=== PATIENT | male | born 1995 | race Caucasian/White ===

== ENCOUNTER 2020-08-24 01:08 | Emergency (ER) | payer MEDICAID ==
[~2020-08-24] VITALS: Ht 167.6 cm; Wt 80.7 kg
--- NOTE | 2020-08-24 01:24 | Emergency Room Report ---
History of Present Illness General Chief Complaint: Head Injury Source: Patient Present Illness HPI 25-year-old male with no prior medical history presents to ED status post syncopal fall that occurred prior to arrival. Pt states he felt hot and flushed and then "passed out", hitting the back of his head on the floor. Fall was unwitnessed. His girlfriend found him unconscious for 1 min with rapid return back to baseline. Patient states he has been having diarrhea x 1 day, non bloody. Also endorses vomiting after syncope. States the back of his head hurts where his head hit the ground. Patient states he recently returned from [place] travel out of [place]. 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 Denies household sick contacts. Denies seizure or sz history, bowel/bladder incontinence, urinary retention, vision changes, weakness, neck pain, back pain, chest pain, melena, hematochez ia, dysuria, hematuria, cough, phlegm, fever, chills, or other symptoms. The patient's symptoms were gradual onset, severity was moderate, duration since 1-2 days. Quality: generally weak Past medical history: Denies Past surgical history: Denies Smoking: ++ tobacco Alcohol use: ++occasional alcohol Drug use: ++marijuana Review of systems: CONST: No fevers or chills, No night sweats PULMONARY: No productive cough, No shortness of breath CARDIAC: No chest pain, No palpitations GI: No vomiting, ++ diarrhea , No melena_or_BRBPR : No dysuria, No hematuria, No discharge NEURO: No new_focal_weakness_or_numbness, No confusion, No vision changes 14 point Review of Systems is otherwise negative except per HPI Physical Exam: GENERAL: Awake_alert_ nontoxic, no acute distress Spo2 97% on RA -normal EYES: Extraocular muscles are intact. Conjunctivae clear. Lids without swelling. No nystagmus. No tongue lesions. ENT: External nose and ear normal_in_appearance. Oropharynx clear. Head_atraumatic, Moist_oral_mucosa NECK: No JVD. No meningismus. No thyromegaly. Supple. Trachea midline. No C/T/L spine TTP or deformity. RESP: Normal respiratory effort. Symmetric rise. No chest wall crepitus. No stridor. Clear_to_auscultation_No_rales_No_wheezes CARDIAC: Regular rate and regular rhytm. No_significant pedal edema. ABDOMEN: Soft. Nondistended. Nontender_No_rebound_or_guarding. No Pelvic instability. MSK: Normal muscle tone, without rigidity. Extremities without asymmetric deformity or swelling. SKIN: Warm and dry. No visible cyanosis or pallor. No petechiae. NEUROLOGIC: Alert, oriented x3. Motor_and_sensation_grossly_intact. No truncal ataxia. Gait_normal Psych: Normal mood and affect, normal judgment and insight - COORDINATION OF CARE Case was discussed with: Patient Any labs and imaging that were ordered were interpreted as part of the medical decision making: Medical Decision Making/Plan: Differential diagnosis for the patients symptoms include vasovagal syncope , malignant arrhythmias, obstructive heart disease (critical aortic stenosis, hypertrophic cardiomyopathy), acute anemia, severe dehydration, electrolyte abnormalities, orthostatic hypotension 2/2 dehydration from GI loss among others. Initial vital signs are unremarkable. Patient is afebrile. No nuchal rigidity or signs of trauma. EKG shows sinus bradycardia hr 59. EKG shows no signs of malignant arrhythmia such as Brugada syndrome, delta wave, significant heart block, or QTc >500. Labs show no severe electrolyte derangement such as severe hyponatremia, hypokalemia, acidosis, or hypoglycemia. Mild leukocytosis of 16. Suspect viral gastroenteritis. Abdominal exam is non tender. No CVA TTP. Doubt abdominal surgical emergency. COVID swab negative. Does not meet septic criteria CT head was performed due to new BELL s/p traumatic accident. It demonstrates no ICH. No SAH. Orthostatic vital signs were negative (laying 105/50 HR 58; sitting 111/59 HR 68, standing 115/67 HR 71) ED intervention included IV fluids, rocephin, azithro. Tylenol, robaxin, toradol given for BELL. BELL has no red flag features. He is neuro intact. All symptoms resolved. Patient is SF syncope criteria negative. The patient denies any external blood loss and has no significant pallor or evidence of acute anemia as a cause of their symptoms. Hemoglobin is not severely low, and acute blood transfusion is not indicated. In addition, the patient has no loud murmur or evidence of significant obstructive heart disease, symptoms are not in the setting of exertion. The patient is neurologically intact, with normal cerebellar exam, without any evidence of central vertigo as a cause of their symptoms. No report of seizure activity. They appear well hydrated without any evidence of severe dehydration or acute hypovolemia. The patient was observed for a period of time, with symptoms improved, and no emergent cause of their symptoms. Pertinent results reviewed with the patient. I educated the patient on the current treatment plan including the risks, benefits, and alternatives. I also discussed the extent and limitations of the current evaluation. The patient expressed understanding and agreement with plan. I recommended PMD follow-up within 1-2 days. Also advised that the patient return to the Emergency Department as soon as possible if they experience any new, persistent, or worsening symptoms. Allergies: Coded Allergies: No Known Allergies (Unverified , 08/24/20) COVID-19 Screening Contact w/high risk pt: Yes Experienced COVID-19 symptoms?: No COVID-19 Testing performed [employer]: Yes - 08/16/20 COVID-19 Screening: Negative COVID-19 COVID-19 Testing Source: [facility] Nursing Documentation-[facility] Past Medical History: No Stated History Physical Exam Vital Signs Date Time Temp Pulse Resp B/P (MAP) Pulse Ox O2 Delivery O2 Flow Rate FiO2 08/24/20 01:16 97.9 68 16 114/67 (83) 97 Room Air Sp02 EP Interpretation: reviewed, normal Medical Decision Making Diagnostic Impression: Primary Impression: Acute head injury Additional Impressions: Vasovagal attack Diarrhea Marijuana abuse EKG Diagnostic Results Troponin ordered: Yes When was troponin ordered?: Aug 24, 2020 DONYA Scribe Text 12-lead EKG (interpreted by ) Time: 0125 Indication: Rhythm analysis Tracing visualized and Interpreted by me. Rhythm: sinus bradycardia Rate: 59 bpm QTc: 413 Morphology: No_significant_ST_elevations_or_depressions, No STEMI Impression: sinus bradycardia Rhythm Strip Diag. Results Rhythm Strip Time: 01:41 EP Interpretation: yes - 71 Rhythm: NSR, no PVC's, no ectopy Chest X-Ray Diagnostic Results Chest X-Ray Diagnostic Results : DONYA Olsonibjessica López Chest X-Ray: Views: [ 1 ] view(s) Indication: syncope Findings: Normal heart size. Mediastinum normal. No infiltrate. Impression: NAD The X-ray(s) were independently viewed and interpreted contemporaneously Electronically signed by Jody walker DO CT/MRI/US Diagnostic Results CT/MRI/US Diagnostic Results : Impression CT Head Without Intravenous Contrast COMPARISON: No relevant prior studies available. FINDINGS: Brain: Unremarkable. No hemorrhage. No significant white matter disease. No edema. Ventricles: Unremarkable. No ventriculomegaly. Bones/joints: Unremarkable. No acute fracture. Soft tissues: Unremarkable. Sinuses: Unremarkable as visualized. No acute sinusitis. Mastoid air cells: Unremarkable as visualized. No mastoid effusion. IMPRESSION: Negative CT head Reevaluation Time: 03:00 Last Vital Signs Date Time Temp Pulse Resp B/P (MAP) Pulse Ox O2 Delivery O2 Flow Rate FiO2 08/24/20 01:16 97.9 68 16 114/67 (83) 97 Room Air Status: improved Disposition: HOME, SELF-CARE Admit Decision Time: 03:30 Condition: Stable Scripts Ciprofloxacin Hcl* (CIPROFLOXACIN HCL*) 500 Mg Tablet 500 MG ORAL Q12H, #14 TAB 0 Refills Prov: Jody Velez D.O. 08/24/20 Ondansetron Odt* (ZOFRAN ODT*) 4 Mg Tab.rapdis 4 MG BC EVERY 8 HOURS, #10 TAB 0 Refills Prov: Jody Velez D.O. 08/24/20 Naproxen* (NAPROXEN*) 500 Mg Tablet.dr 500 MG ORAL TWICE A DAY for 10 Days, #20 TAB Prov: Jody Velez D.O. 08/24/20 Methocarbamol* (ROBAXIN-750*) 750 Mg Tablet 750 MG PO TID, #21 TAB 0 Refills Prov: Jody Velez D.O. 08/24/20 Patient Instructions: Diarrhea, Adult, [id number], Vasovagal Syncope, Adult Additional Instructions: Instructions for patient/supply crib attendant: Follow up with your physician in 1-2 days. Follow-up with your doctor sooner if your condition requires a more timely clinical reevaluation. Return to the emergency department immediately if you feel that your condition is worsening or if you have any new or concerning symptoms. Review your discharge instructions and take any prescriptions given as instructed. [facility] PROVIDES FREE OR LOW-COST HEALTH SERVICES TO PEOPLE WHO CAN SHOW PROOF THAT THEY LIVE IN [facility]. TO FIND MORE CLINICS PARTNERED WITH THE COUNTY TO PROVIDE SERVICE, PLEASE CALL . Jody Velez D.O. Aug 24, 2020 01:24
[2020-08-24] MEDS ORDERED: Acetaminophen 500mg (ES) tab ORAL ONE (01:30)
[2020-08-24] MEDS ORDERED: Methocarbamol 750mg tab ORAL ONE (01:30)
[2020-08-24 01:40] VITALS: BP 114/67
[2020-08-24 01:50] VITALS: BP 105/50
[2020-08-24 01:54] LABS: BASOPHILS % (AUTO) 0.8 % (0.0-2.0); EOSINOPHILS % (AUTO) 1.7 % (0.0-3.0); HEMATOCRIT 40.7 % (42.0-52.0); HEMOGLOBIN 15.8 G/DL (14.2-18.0); LYMPHOCYTES % (AUTO) 17.7 % (20.0-45.0); MEAN CORPUSCULAR VOLUME 85 FL (80-99); MONOCYTES % (AUTO) 8.1 % (1.0-10.0); NEUTROPHILS % (AUTO) 71.7 % (45.0-75.0); PLATELET COUNT 255 K/UL (150-450); RED BLOOD COUNT 4.78 M/UL (4.70-6.10); RED CELL DISTRIBUTION WIDTH 11.8 % (11.6-14.8); WHITE BLOOD COUNT 16.6 K/UL (4.8-10.8)
[2020-08-24 01:55] VITALS: BP 111/59
[2020-08-24 02:00] VITALS: BP 115/67
[2020-08-24 02:06] LABS: ANION GAP 9 mmol/L (5-15); BLOOD UREA NITROGEN 20 mg/dL (7-18); CALCIUM 9.1 MG/DL (8.5-10.1); CARBON DIOXIDE 28 MMOL/L (21-32); CHLORIDE 103 MMOL/L (98-107); CREATININE 1.2 MG/DL (0.55-1.30); POTASSIUM 3.8 MMOL/L (3.5-5.1); SODIUM 140 MMOL/L (136-145)
[2020-08-24 02:08] LABS: INR 1.1 (0.9-1.1)
[2020-08-24 02:16] LABS: ALANINE AMINOTRANSFERASE 59 U/L (12-78); ALBUMIN 4.5 G/DL (3.4-5.0); ALBUMIN/GLOBULIN RATIO 1.6 (1.0-2.7); ALKALINE PHOSPHATASE 83 U/L (46-116); ASPARTATE AMINO TRANSFERASE 19 U/L (15-37); BILIRUBIN,TOTAL 0.7 MG/DL (0.2-1.0); CREATINE KINASE 154 U/L (26-308)
[2020-08-24 02:24] LABS: FERRITIN 140 NG/ML (8-388); LACTATE DEHYDROGENASE 201 U/L (81-234)
--- NOTE | 2020-08-24 02:28 | Diagnostic Imaging Report ---
EXAM: CT Head Without Intravenous Contrast CLINICAL HISTORY: SYNCOPE TECHNIQUE: Axial computed tomography images of the head/brain without intravenous contrast. CTDI is 53.40 mGy and DLP is 1072.20 mGy-cm. One or more of the following dose reduction techniques were used: automated exposure control, adjustment of the mA and/or kV according to patient size, use of iterative reconstruction technique. COMPARISON: No relevant prior studies available. FINDINGS: Brain: Unremarkable. No hemorrhage. No significant white matter disease. No edema. Ventricles: Unremarkable. No ventriculomegaly. Bones/joints: Unremarkable. No acute fracture. Soft tissues: Unremarkable. Sinuses: Unremarkable as visualized. No acute sinusitis. Mastoid air cells: Unremarkable as visualized. No mastoid effusion. IMPRESSION: Negative CT head
[2020-08-24] MEDS ORDERED: Azithromycin 500 MG in NS 275 ML IV ONE (02:30)
[2020-08-24] MEDS ORDERED: cefTRIAXone 1 GM in NS 55 ML IVPB ONE (02:30)
[2020-08-24] MEDS ORDERED: ROBAXIN-750750 MG PO (02:57)
[2020-08-24] MEDS ORDERED: NAPROXEN500 M1 ORAL (02:57)
[2020-08-24] MEDS ORDERED: ONDANSETRON ODT4 MG BC (02:58)
[2020-08-24] MEDS ORDERED: CIPROFLOXACIN500 M2 ORAL (02:58)
[2020-08-24] MEDS ORDERED: Ketorolac 30mg Inj IV ONE (03:00)
[2020-08-24 03:44] LABS: APPEARANCE,URINE CLEAR; BILIRUBIN, URINE NEGATIVE (NEGATIVE); GLUCOSE, URINE (UA) NEGATIVE (NEGATIVE); KETONES,URINE NEGATIVE (NEGATIVE); LEUKOCYTE ESTERASE ,URINE NEGATIVE (NEGATIVE); NITRITE,URINE NEGATIVE (NEGATIVE); PH,URINE 5 (4.5-8.0); UROBILINOGEN,URINE NORMAL MG/DL (0.0-1.0)
[2020-08-24 03:45] LABS: COLOR,URINE YELLOW; PROTEIN,URINE NEGATIVE (NEGATIVE)
[2020-08-24 04:05] VITALS: BP 122/72
--- NOTE | 2020-08-24 13:42 | Diagnostic Imaging Report ---
Indication: Reason For Exam: SYNCOPE, chest pain Technique: Single AP view of the chest. Comparison: None. Findings: The cardiomediastinal silhouette is within normal limits. There is no focal consolidation, pneumothorax or pleural effusion. Osseous structures demonstrate no acute abnormality. IMPRESSION: No radiographic evidence of acute cardiopulmonary process.
== END 2020-08-24 04:05 | disposition home or self-care (01) ==
LOC: EMR 01:24
DX: S06.9X1A Unspecified intracranial injury with loss of consciousness of 30 minutes or less, initial encounter (principal); R55 Syncope and collapse; R19.7 Diarrhea, unspecified; F12.10 Cannabis abuse, uncomplicated; W01.198A Fall on same level from slipping, tripping and stumbling with subsequent striking against other object, initial encounter; Y93.9 Activity, unspecified; Y92.9 Unspecified place or not applicable
CPT/HCPCS: 36415; 70450; 71045; 80053; 80307; 81003; 82550; 82728; 83615; 83690; 83880; 84484; 85025; 85610; 85730; 86140; 93005; 96361; 96365; 96367; 96375; J0456; J0696; J1885; J7030; J7050; U0002; Z7502; 99284